=== PATIENT | male | born 1975 | race Caucasian/White ===

== ENCOUNTER 2017-02-08 22:55 | Emergency (ER) | payer SELFPAY ==
[~2017-02-08] VITALS: Ht 167.6 cm; Wt 69.0 kg
[~2017-02-08 22:55] MED LIST: ACET325T33 PO; AUG875 PO; CIPR7.5D4 RIGHT EAR
[2017-02-08 23:00] VITALS: Ht 167.6 cm; Wt 69.0 kg
[2017-02-09] MEDS ORDERED: MAGIC MOUTHWASH (00:34)
--- NOTE | 2017-02-27 18:19 | ERD ---
ER Documentation Chief Complaint Date/Time DATE: 02/27/17 TIME: 18:16 Chief Complaint mouth sores HPI 41 yo male presents here in the ER for complaints mouth sores started yesterday. Patient denies any fever or chills. Patient denies any sick contacts. Patient denies any shortness of breath, stridor, wheezing. Patient denies any other symptoms. Patient did not take any medications to help with symptoms. ROS All systems reviewed and are negative except as per history of present illness. Medications Home Meds Active Scripts [Magic Mouthwash] No Conflict Check Rx: 1 Part viscous lidocaine 2% 1 Part Maalox (do not substitute Kaopectate) 1 Part diphenhydramine 12.5 mg per 5 ml elixir Quantity: 120 ml Sig: Swish, gargle, and spit one to two teaspoonfuls every six hours as needed. May be swallowed if esophageal involvement. Shake well before using. Prov:ISRAEL GONSALES NP 02/09/17 Acetaminophen* (Tylenol*) 325 Mg Tablet, 1 TAB PO Q6 Y for PAIN AND OR ELEVATED TEMP, #20 TAB Prov:FAWAD CHARLES DO 06/27/15 Acetaminophen* (Tylenol*) 325 Mg Tablet, 2 TAB PO Q6 Y for PAIN AND OR ELEVATED TEMP, #30 TAB Prov:ANA HOWE PA-C 06/24/15 Ciprofloxacin Hcl/Dexameth (Ciprodex Otic Suspension) 7.5 Ml Drops.susp, 4 DROP RIGHT EAR BID for 7 Days, EA Prov:ANA HOWE PA-C 06/24/15 Amoxicillin-Clavulanate K* (Augmentin*) 875 Mg Tab, 875 MG PO BID for 7 Days, TAB Prov:ANA HOWE PA-C 06/24/15 Allergies Allergies: Coded Allergies: No Known Allergy (Unverified , 06/27/15) PMhx/Soc History of Surgery: Yes (APPENDECTOMY; HERNIA. ) Anesthesia Reaction: No Hx Neurological Disorder: No Hx Respiratory Disorders: No Hx Cardiac Disorders: No Hx Psychiatric Problems: No Hx Miscellaneous Medical Probl: No Hx Alcohol Use: No Hx Substance Use: No Hx Tobacco Use: No FmHx Family History: No coronary disease, No diabetes, No other Physical Exam Physical Exam GENERAL: The patient is well developed and appropriate for usual state of health, in no apparent distress. HEENT: Atraumatic. Ears: Normal tympanic membrane, no erythema or bulging. No ear canal swelling. No ear discharge. Nose: normal nasal turbinates, no erythema or swelling. Normal nasal discharge. Throat: oropharynx clear. No tonsillar swelling or tonsillar exudates. No lymphadenopathy. Also sick with the buccal mucosa, tongue, Oropharyngeal Wall. CHEST: Clear to auscultation bilaterally. There are no rales, wheezes or rhonchi. HEART: Regular rate and rhythm. No murmurs, clicks, rubs or gallops. No S3 or S4. ABDOMEN: Soft, nontender and nondistended. Good bowel sounds. No rebound or guarding. No gross peritonitis. No gross organomegaly or masses. No Rock sign or McBurney point tenderness. BACK: No midline or flank tenderness. EXTREMITIES: Equal pulses bilaterally. There is no peripheral clubbing, cyanosis or edema. No focal swelling or erythema. Full range of motion. Grossly neurovascularly intact. NEURO: Alert and oriented. Cranial nerves 2-12 intact. Motor strength in all 4 extremities with 5/5 strength. Sensation grossly intact. Normal speech and gait. SKIN: There is no apparent rash or petechia. The skin is warm and dry. HEMATOLOGIC AND LYMPHATIC: There is no evidence of excessive bruising or lymphedema. No gross cervical, axillary, or inguinal lymphadenopathy. Procedures/MDM Medical decision making: Patient's symptoms most active consistent with aphthous ulcer, nonspecific at this time, I doubt the patient has peritonsillar abscess, acute bacterial infection, leukoplakia, patient does not have any symptoms of shortness of breath. Patient was advised to take medications as prescribed, was given prescription for Magic mouthwash, is advised to follow-up with primary care doctor in 1-2 days for reevaluation symptoms. Patient was advised to return to emergency department for worsening symptoms Departure Diagnosis: Primary Impression: Aphthous ulcer Condition: Stable Patient Instructions: Aphthous Ulcer ISRAEL GONSALES NP Feb 27, 2017 18:19
== END 2017-02-09 01:04 | disposition home or self-care (01) ==
LOC: FTE 22:55
DX: K12.0 Recurrent oral aphthae (principal)
CPT/HCPCS: 99283

== ENCOUNTER 2019-03-30 13:12 | Inpatient (IN) | payer MEDICAID ==
[~2019-03-30] VITALS: Ht 167.6 cm; Wt 69.4 kg
[~2019-03-30 13:12] MED LIST changes: +CIPR7.5D RIGHT EAR; -CIPR7.5D4 RIGHT EAR; +MAGIC MOUTHWASH
--- NOTE | 2019-03-30 13:22 | EN ---
Date/Time of Note Date/Time of Note DATE: 03/30/19 TIME: 13:21 ER Progress Note Quick RME note: Medical screening exam was initiated and lab/imaging studies were ordered. Patient will be seen in ED 2 by another provider. HPI: Patient is a 43-year-old male presents ER for concerns of hematuria x1 day. Patient states he had intermittent right upper quadrant pain, nausea and vomiting. At this time he has no right upper quadrant pain. Patient did go to his primary care doctor who did obtain blood work however he does not have the results. Orders placed: UA ordered. Additional orders will be placed by ED 2 provider JOSEPH RAMOS PA-C March 30, 2019 13:22
--- NOTE | 2019-03-30 14:26 | ERD ---
ER Documentation Chief Complaint Chief Complaint c/o hematuria since yesterday, denies flank pain HPI Patient is a 43-year-old male presents ER for concerns of hematuria x1 day. Patient states he had intermittent right upper quadrant pain, nausea and vomiting for the past 1-1/2 months.. At this time he has no right upper quadrant pain. Patient did go to his primary care doctor who did obtain blood work however he does not have the results. Denies dysuria, fevers, chills, flank pain. He denies drinking alcohol.No blood thinner use or history of coagulopathy ROS All systems reviewed and are negative except as per history of present illness. Medications Home Meds Active Scripts Levothyroxine Sodium* (Levothyroxine Sodium*) 50 Mcg Tablet, 50 MCG PO DAILY@06, #30 TAB Prov:MARIANA MENDOZA NP 04/01/19 Tramadol HCl (Tramadol HCl) 50 Mg Tablet, 50 MG PO Q6H PRN for PAIN, #12 TAB Prov:MARIANA MENDOZA NP 04/01/19 Famotidine* (Famotidine*) 20 Mg Tablet, 20 MG PO DAILY, #30 TAB Prov:MARIANA MENDOZA NP 04/01/19 Discontinued Scripts [Magic Mouthwash] No Conflict Check Rx: 1 Part viscous lidocaine 2% 1 Part Maalox (do not substitute Kaopectate) 1 Part diphenhydramine 12.5 mg per 5 ml elixir Quantity: 120 ml Sig: Swish, gargle, and spit one to two teaspoonfuls every six hours as needed. May be swallowed if esophageal involvement. Shake well before using. Prov:ISRAEL GONSALES NP 02/09/17 Acetaminophen* (Tylenol*) 325 Mg Tablet, 1 TAB PO Q6 PRN for PAIN AND OR ELEVATED TEMP, #20 TAB Prov:FAWAD CHARLES DO 06/27/15 Acetaminophen* (Tylenol*) 325 Mg Tablet, 2 TAB PO Q6 PRN for PAIN AND OR ELEVATED TEMP, #30 TAB Prov:ANA HOWEC 06/24/15 Ciprofloxacin Hcl/Dexameth (Ciprodex Otic Suspension) 7.5 Ml Drops.susp, 4 DROP RIGHT EAR BID for 7 Days, EA Prov:ANA HOWE PA-C 06/24/15 Amoxicillin-Clavulanate K* (Augmentin*) 875 Mg Tab, 875 MG PO BID for 7 Days, TAB Prov:ANA HOWE PA-C 06/24/15 Allergies Allergies: Coded Allergies: No Known Allergy (Unverified , 03/30/19) PMhx/Soc History of Surgery: Yes (APPENDECTOMY; HERNIA. ) Anesthesia Reaction: No Hx Neurological Disorder: No Hx Respiratory Disorders: No Hx Cardiac Disorders: No Hx Psychiatric Problems: No Hx Miscellaneous Medical Probl: No Hx Alcohol Use: No Hx Substance Use: No Hx Tobacco Use: No Smoking Status: Never smoker FmHx Family History: No diabetes, No coronary disease, No other Physical Exam Vitals Vital Signs Date Temp Pulse Resp B/P (MAP) Pulse Ox O2 O2 Flow FiO2 Time Delivery Rate 03/30/19 98.4 55 16 109/67 98 18:20 (81) 03/30/19 98.1 84 20 139/88 96 13:16 (105) Physical Exam Const: No acute distress Head: Atraumatic Eyes: Jaundice noted on the conjunctival bilaterally. ENT: Normal External Ears, Nose and Mouth. Neck: Full range of motion. No meningismus. Resp: Clear to auscultation bilaterally Cardio: Regular rate and rhythm, no murmurs Abd: Soft, non tender, non distended. Normal bowel sounds. Negative Rock's. Negative McBurney's. Skin: No petechiae or rashes Back: No midline or flank tenderness Ext: No cyanosis, or edema Neur: Awake and alert Psych: Normal Mood and Affect : No penile discharge noted. Glans of penis is not erythematous or edematous. Attending exam: Const: Well-appearing, no apparent distress, nontoxic Head: Atraumatic Eyes: Scleral icterus noted, PERRLA ENT: Normal External Ears, Nose and Mouth. Neck: Full range of motion. No meningismus. Resp: Clear to auscultation bilaterally Cardio: Regular rate and rhythm, no murmurs Abd: Soft, non tender, non distended. No palpable masses. Negative Rock sign. No hepatosplenomegaly. Normal bowel sounds Skin: No petechiae or rashes, no obvious jaundice. No bruises Back: No midline or flank tenderness Ext: No cyanosis, or edema Neur: Awake and alert Psych: Normal Mood and Affect Result Diagram: 03/31/19 0429 04/01/19 0458 Results 24 hrs Laboratory Tests Test 03/30/19 14:54 03/30/19 17:45 White Blood Count 5.2 10^3/ul Red Blood Count 5.21 10^6/ul Hemoglobin 14.6 g/dl Hematocrit 44.3 % Mean Corpuscular Volume 85.0 fl Mean Corpuscular Hemoglobin 28.0 pg Mean Corpuscular Hemoglobin Concent 33.0 g/dl Red Cell Distribution Width 13.8 % Platelet Count 296 10^3/UL Mean Platelet Volume 9.4 fl Immature Granulocytes % 0.400 % Neutrophils % 54.3 % Lymphocytes % 34.9 % Monocytes % 7.3 % Eosinophils % 2.7 % Basophils % 0.4 % Nucleated Red Blood Cells % 0.0 /100WBC Immature Granulocytes # 0.020 10^3/ul Neutrophils # 2.8 10^3/ul Lymphocytes # 1.8 10^3/ul Monocytes # 0.4 10^3/ul Eosinophils # 0.1 10^3/ul Basophils # 0.0 10^3/ul Nucleated Red Blood Cells # 0.0 10^3/ul Urine Color ZENON Urine Clarity CLEAR Urine pH 6.0 Urine Specific [place] 1.015 Urine Ketones 1+ mg/dL Urine Nitrite NEGATIVE mg/dL Urine Bilirubin 2+ mg/dL Urine Urobilinogen 2+ mg/dL Urine Leukocyte Esterase NEGATIVE Natalia/ul Urine Hemoglobin NEGATIVE mg/dL Urine Glucose NEGATIVE mg/dL Urine Total Protein NEGATIVE mg/dl Sodium Level 141 mmol/L Potassium Level 4.2 mmol/L Chloride Level 100 mmol/L Carbon Dioxide Level 32 mmol/L Anion Gap 9 Blood Urea Nitrogen 14 mg/dl Creatinine 0.81 mg/dl Est Glomerular Filtrat Rate mL/min > 60 mL/min Glucose Level 115 mg/dl Calcium Level 9.8 mg/dl Total Bilirubin 2.8 mg/dl Direct Bilirubin 1.30 mg/dl Indirect Bilirubin 1.5 mg/dl Aspartate Amino Transf (AST/SGOT) 441 IU/L Alanine Aminotransferase (ALT/SGPT) 950 IU/L Alkaline Phosphatase 255 IU/L Total Protein 7.8 g/dl Albumin 4.6 g/dl Globulin 3.20 g/dl Albumin/Globulin Ratio 1.43 Lipase 109 U/L Hepatitis B Surface Antigen NEGATIVE Hepatitis B Core Total Antibody NEGATIVE Hepatitis C Antibody NEGATIVE Prothrombin Time 12.4 Sec Prothrombin Time Ratio 1.0 INR International Normalized Ratio 0.91 Activated Partial Thromboplast Time 28.6 Sec Current Medications Medications Dose Sig/Adam Start Time Status Last (Trade) Ordered Route PRN Stop Time Admin Dose Reason Admin IV Flush 10 ml STK-MED 03/30/19 DC (NS 10 ml) ONCE .ROUTE 17:50 03/30/19 17:51 Sodium 100 ml @ ud STK-MED 03/30/19 DC Chloride ONCE .ROUTE 17:50 03/30/19 17:51 Iohexol 50 ml STK-MED 03/30/19 DC (Omnipaque ONCE .ROUTE 17:50 350mg/ ml) 03/30/19 17:51 Sodium 1,000 ml @ [id number] IV 03/30/19 DC 03/31/19 Chloride 80 mls/hr 18:37 21:49 04/01/19 18:03 Procedures/MDM EMERGENT LABS AND DIAGNOSTIC STUDIES: Lab Results above were reviewed and interpreted by me. CBC: no anemia or evidence of infection CMP: Significant transaminitis with elevated bilirubin and alk phos, concerning for biliary obstruction. No evidence of clinically significant electrolyte abnormality, acidosis, renal failure, hypoglycemia Lipase: no evidence of pancreatitis UA: no evidence of hematuria or infection. Bilirubin noted Radiology Results as interpreted by Radiology below were reviewed by Danilo Howard MD: Ultrasound right upper quadrant shows large gallstone CT abdomen and pelvis with and without IV contrast shows gallstones without other abnormalities Initial Nursing notes reviewed. Previous Medical Records requested via the Electronic Health Record. EMERGENCY DEPARTMENT COURSE / MEDICAL DECISION MAKING: Patient is presenting with new onset jaundice and intermittent right upper michelle drant pain and vomiting. Exam and work-up are concerning for possible biliary obstruction, either from stone versus scar tissue versus mass. Currently the patient has no symptoms or signs of cholecystitis. I do not suspect acute cholangitis. Hepatitis work-up ordered. Patient will require admission for GI consultation and likely ERCP. Accepting Care Team: Current data and ongoing care discussed. Time: Time of admission Primary Provider: Dr. Wilson Outstanding Data: hepatitis panel Departure Diagnosis: Primary Impression: Biliary obstruction Additional Impression: Cholelithiasis Cholelithiasis location: other site Biliary obstruction: with biliary obstruction Qualified Codes: K80.81 - Other cholelithiasis with obstruction Condition: Stable KATHRYN CEJA March 30, 2019 14:26 ROBERTH HOWARD MD March 30, 2019 19:46
[2019-03-30] MEDS ORDERED: LEVO25TA6 PO (17:20)
[2019-03-30] MEDS ORDERED: SOD CHLORIDE 0.9% 100 ML ONE (17:50)
[2019-03-30] MEDS ORDERED: IOHEXOL 350MG/ML 50 ML BTL ONE (17:50)
[2019-03-30] MEDS ORDERED: NACL 0.9% 3 ML SYG IV SCH (19:00)
[2019-03-30] MEDS ORDERED: ACETAMINOPHEN 325 MG TAB PO PRN ×2 (19:00)
[2019-03-30] MEDS ORDERED: ONDANSETRON 4 MG INJ IV PRN ×2 (19:00)
[2019-03-30] MEDS ORDERED: morphine 2 MG INJ IV PRN (19:00)
[2019-03-30] MEDS ORDERED: HYDROCODONE/APAP (5/325) TAB PO PRN (19:00)
[2019-03-30] MEDS: SOD CHLORIDE 0.9% 1,000 ML IV SCH (20:59)
[2019-03-31 00:46] VITALS: Ht 167.6 cm; Wt 69.4 kg
[2019-03-31 00:59] VITALS: BP 131/75; PULSE 61; RESP 18
[2019-03-31] MEDS ORDERED: METOCLOPRAMIDE 10 MG INJ IV PRN (01:00)
[2019-03-31] MEDS ORDERED: PANTOPRAZOLE 40 MG INJ IV SCH (06:00)
[2019-03-31] MEDS: LEVOTHYROXINE 25 MCG TAB PO SCH (06:26)
--- NOTE | 2019-03-31 07:05 | HP ---
Date/Time of Note Date/Time of Note DATE: 03/31/19 TIME: 07:01 Assessment/Plan VTE Prophylaxis Pharmacological prophylaxis: other Lines/Catheters IV Catheter Type (from Nrs): Saline Lock Assessment/Plan Assessment/Plan 43-year-old male with a history of hernia surgery and appendectomy presents with right upper quadrant pain of > 1 month duration and jaundice, most likely secondary to choledocholithiasis PLAN -Keep n.p.o. with IV fluid -MRCP -GI consult -Check hep panel Result Diagram: 03/31/19 0429 03/31/19428 Results 24hrs Laboratory Tests Test 03/30/19 14:54 03/30/19 17:45 03/31/19 04:29 White Blood Count 5.2 6.1 Red Blood Count 5.21 4.78 Hemoglobin 14.6 13.5 L Hematocrit 44.3 40.3 L Mean Corpuscular Volume 85.0 84.3 Mean Corpuscular Hemoglobin 28.0 L 28.2 L Mean Corpuscular Hemoglobin Concent 33.0 33.5 Red Cell Distribution Width 13.8 14.2 Platelet Count 296 273 Mean Platelet Volume 9.4 9.8 Immature Granulocytes % 0.400 0.300 Neutrophils % 54.3 60.3 Lymphocytes % 34.9 27.8 Monocytes % 7.3 8.2 Eosinophils % 2.7 3.1 Basophils % 0.4 0.3 Nucleated Red Blood Cells % 0.0 0.0 Immature Granulocytes # 0.020 0.020 Neutrophils # 2.8 3.7 Lymphocytes # 1.8 1.7 Monocytes # 0.4 0.5 Eosinophils # 0.1 0.2 Basophils # 0.0 0.0 Nucleated Red Blood Cells # 0.0 0.0 Urine Color ZENON Urine Clarity CLEAR Urine pH 6.0 Urine Specific [place] 1.015 Urine Ketones 1+ H Urine Nitrite NEGATIVE Urine Bilirubin 2+ H Urine Urobilinogen 2+ H Urine Leukocyte Esterase NEGATIVE Urine Hemoglobin NEGATIVE Urine Glucose NEGATIVE Urine Total Protein NEGATIVE Sodium Level 141 143 Potassium Level 4.2 4.4 Chloride Level 100 103 Carbon Dioxide Level 32 H 30 Anion Gap 9 10 Blood Urea Nitrogen 14 14 Creatinine 0.81 0.87 Est Glomerular Filtrat Rate mL/min > 60 > 60 Glucose Level 115 81 Calcium Level 9.8 9.1 Total Bilirubin 2.8 H 1.1 Direct Bilirubin 1.30 H 0.00 # Indirect Bilirubin 1.5 H 1.1 Aspartate Amino Transf (AST/SGOT) 441 H 227 H Alanine Aminotransferase (ALT/SGPT) 950 H 699 H Alkaline Phosphatase 255 H 223 H Total Protein 7.8 6.7 # Albumin 4.6 4.0 Globulin 3.20 2.70 Albumin/Globulin Ratio 1.43 1.48 Lipase 109 Hepatitis B Surface Antigen NEGATIVE Hepatitis B Core Total Antibody NEGATIVE Hepatitis C Antibody NEGATIVE Prothrombin Time 12.4 Prothrombin Time Ratio 1.0 INR International Normalized Ratio 0.91 Activated Partial Thromboplast Time 28.6 Hemoglobin A1c 5.1 Magnesium Level 2.1 Triglycerides Level 32 Cholesterol Level 142 LDL Cholesterol, Calculated 71 HDL Cholesterol 65 Cholesterol/HDL Ratio 2.1 Thyroid Stimulating Hormone (TSH) 58.600 H HPI/ROS Admit Date/Time Admit Date/Time March 30, 2019 at 18:37 Hx of Present Illness This is a 43-year-old male with a history of hernia surgery and appendectomy who presents the ER complaining of abdominal pain. Pain is been going on for over a month and is mainly located in the right upper quadrant area. He also complains of yellowing of his eyes. He said does not drink, smoke or do illicit drugs When he presented to ER, he is found to have AST and ALT in the 400s and 900s range respectively. Total bilirubin 2.8, direct 1.3, alk phos 255. Ultrasound shows ill-defined echogenic area in the right and left lobes of the liver may represent a large area of calcification versus air and large calcified stone within the gallbladder. CT abdomen/pelvis shows fatty liver, cholelithiasis and a small hiatal hernia PMH/Family/Social Past Medical History Past Medical History Medical History: other (See HPI) Past Surgical History Past Surgical Hx: other (See HPI) Family History Significant Family History: no pertinent family hx Social History Alcohol Use: none Smoking Status: Never smoker Drug Use: none Exam Constitutional: alert, oriented, well developed Head: normocephalic, atraumatic Eyes: EOMI, PERRL Respiratory: clear to auscultation, normal air movement Cardiovascular: regular rate and rhythm, nl pulses Gastrointestinal: soft, non-tender Extremities: normal pulses Medications Current Medications Ondansetron HCl (Zofran Inj) 4 mg BRIDGE ORDER PRN IV NAUSEA/VOMITING; Start 03/30/19 at 19:00; Stop 03/31/19 at 18:59 Acetaminophen (Tylenol Tab) 650 mg ER BRIDGE PRN PO .MILD PAIN 1-3 OR TEMP; Start 03/30/19 at 19:00; Stop 03/31/19 at 18:59 Sodium Chloride 1,000 ml @ 80 mls/hr [id number] IV Last administered on 03/30/19at 20:59; Admin Dose 80 MLS/HR; Start 03/30/19 at 18:37 IV Flush (NS 3 ml) 3 ml PER PROTOCOL IV ; Start 03/30/19 at 19:00 Ondansetron HCl (Zofran Inj) 4 mg Q6H PRN IV NAUSEA/VOMITING Last administered on 03/30/19at 21:00; Admin Dose 4 MG; Start 03/30/19 at 19:00 Acetaminophen (Tylenol Tab) 650 mg Q6H PRN PO .PAIN 1-3 OR TEMP; Start 03/30/19 at 19:00 Acetaminophen/ Hydrocodone Bitart ([place] (5/325)) 1 tab Q6H PRN PO .PAIN 4-6; Start 03/30/19 at 19:00 Morphine Sulfate (morphine) 2 mg Q4H PRN IV .PAIN 7-10; Start 03/30/19 at 19:00 Pantoprazole (Protonix Iv) 40 mg DAILY@06 IV Last administered on 03/31/19at 06:28; Admin Dose 40 MG; Start 03/31/19 at 06:00 Metoclopramide HCl (Reglan) 10 mg Q6H PRN IV NAUSEA Last administered on 9at 01:09; Admin Dose 10 MG; Start 03/31/19 at 01:00; Stop 04/01/19 at 01:00 Levothyroxine Sodium (Synthroid) 25 mcg BEFORE BREAKFAST PO ; Start 03/31/19 at 07:00 Coded Allergies: No Known Allergy (Unverified , 03/30/19) Social History Smoking Status: Unknown if ever smoked Exam/Review of Systems Vital Signs Vitals Vital Signs Date Temp Pulse Resp B/P (MAP) Pulse Ox O2 O2 Flow FiO2 Time Delivery Rate 03/31/19 97.8 61 18 131/75 95 00:59 (93) 03/31/19 Room Air 00:25 KATHRYN NEELY MD March 31, 2019 07:05
[2019-03-31] MEDS: SOD CHLORIDE 0.9% 1,000 ML IV SCH ×3 (07:07→21:49)
[2019-03-31 08:00] VITALS: BP 100/57; PULSE 54; RESP 18
--- NOTE | 2019-03-31 11:00 | CONS ---
Assessment/Plan Assessment/Plan Hospital Course (Demo Recall) Summary Assessment and Plan: Assessment: Transaminitis- Trending down Hyperbilirubinemia- resolved -Rule out choledocholithiasis -Possible stone passage? Upper abdominal pain-improved Cholelithiasis Mild fatty infiltration of the liver. Hypothyroidism Plan: MRCP if positive for choledocholithiasis will proceed with ERCP Trend LFTs Ok to start clear liquid diet after MRCP - if negative Patient seen in collaboration with Dr. Badillo CC: OMAR BADILLO MD ; Consultation Date/Type/Reason Admit Date/Time March 30, 2019 at 18:37 Date of Consultation: March 31, 2019 Type of Consult GI Reason for Consultation Transaminitis with hyperbilirubinemia Choledocholithiasis Date/Time of Note DATE: 03/31/19 TIME: 10:53 Hx of Present Illness This is a 43-year-old male with no significant past medical history presented to the hospital complains of upper abdominal pain with work-up patient found to have hyperbilirubinemia transaminitis imaging was obtained including CT abdomen pelvis without contrast showing cholelithiasis, mild fatty infiltration of the liver no dilation of the biliary tree was noted. Patient was admitted for [facility] work-up currently MRCP is been ordered and is pending hepatitis serology is negative for hepatitis B/C LFTs today have decreased in hyper bilirubin has resolved. Will await results of MRCP if deemed positive for choledocholithiasis we will proceed with ERCP. Review of Systems: A 12 system, review was conducted and is negative except as noted in the HPI or here. Past Medical History Home Meds Reported Medications Levothyroxine Sodium* (Levothyroxine Sodium*) 25 Mcg Tablet, 25 MCG PO BEFORE BREAKFAST, #30 TAB 03/30/19 Discontinued Scripts [Magic Mouthwash] No Conflict Check Rx: 1 Part viscous lidocaine 2% 1 Part Maalox (do not substitute Kaopectate) 1 Part diphenhydramine 12.5 mg per 5 ml elixir Quantity: 120 ml Sig: Swish, gargle, and spit one to two teaspoonfuls every six hours as needed. May be swallowed if esophageal involvement. Shake well before using. Prov:ISRAEL GONSALES NP 02/09/17 Acetaminophen* (Tylenol*) 325 Mg Tablet, 1 TAB PO Q6 PRN for PAIN AND OR ELEVATED TEMP, #20 TAB Prov:FAWAD CHARLES 06/27/15 Acetaminophen* (Tylenol*) 325 Mg Tablet, 2 TAB PO Q6 PRN for PAIN AND OR ELEVATED TEMP, #30 TAB Prov:ANA HOWE PA-C 06/24/15 Ciprofloxacin Hcl/Dexameth (Ciprodex Otic Suspension) 7.5 Ml Drops.susp, 4 DROP RIGHT EAR BID for 7 Days, EA Prov:ANA HOWE PA-C 06/24/15 Amoxicillin-Clavulanate K* (Augmentin*) 875 Mg Tab, 875 MG PO BID for 7 Days, TAB Prov:ANA HOWE PA-C 06/24/15 Medications Current Medications Ondansetron HCl (Zofran Inj) 4 mg BRIDGE ORDER PRN IV NAUSEA/VOMITING; Start 03/30/19 at 19:00; Stop 03/31/19 at 18:59 Acetaminophen (Tylenol Tab) 650 mg ER BRIDGE PRN PO .MILD PAIN 1-3 OR TEMP; Start 03/30/19 at 19:00; Stop 03/31/19 at 18:59 Sodium Chloride 1,000 ml @ 80 mls/hr [id number] IV Last administered on 03/31/19at 08:50; Admin Dose 80 MLS/HR; Start 03/30/19 at 18:37 IV Flush (NS 3 ml) 3 ml PER PROTOCOL IV ; Start 03/30/19 at 19:00 Ondansetron HCl (Zofran Inj) 4 mg Q6H PRN IV NAUSEA/VOMITING Last administered on 03/30/19at 21:00; Admin Dose 4 MG; Start 03/30/19 at 19:00 Acetaminophen (Tylenol Tab) 650 mg Q6H PRN PO .PAIN 1-3 OR TEMP; Start 03/30/19 at 19:00 Acetaminophen/ Hydrocodone Bitart ([place] (5/325)) 1 tab Q6H PRN PO .PAIN 4-6; Start 03/30/19 at 19:00 Morphine Sulfate (morphine) 2 mg Q4H PRN IV .PAIN 7-10; Start 03/30/19 at 19:00 Pantoprazole (Protonix Iv) 40 mg DAILY@06 IV Last administered on 03/31/19at 06:28; Admin Dose 40 MG; Start 03/31/19 at 06:00 Metoclopramide HCl (Reglan) 10 mg Q6H PRN IV NAUSEA Last administered on 03/31/19at 01:09; Admin Dose 10 MG; Start 03/31/19 at 01:00; Stop 04/01/19 at 01:00 Levothyroxine Sodium (Synthroid) 25 mcg BEFORE BREAKFAST PO ; Start 03/31/19 at 07:00 Allergies: Coded Allergies: No Known Allergy (Unverified , 03/30/19) Social History Smoking Status: Unknown if ever smoked Exam/Review of Systems Exam Vitals Vital Signs Date Temp Pulse Resp B/P (MAP) Pulse Ox O2 O2 Flow FiO2 Time Delivery Rate 03/31/19 97.5 54 18 100/57 96 Room Air 08:00 (71) Intake and Output 03/30/19 03/30/19 03/31/19 1515:00 23:00 07:00 IntakeIntake Total 800 ml BalanceBalance 800 ml Exam PHYSICAL EXAMINATION: GENERAL: Well developed, well nourished, alert & oriented x 3, in no acute distress SKIN: No lesions HEAD: Normocephalic, atraumatic, no tenderness. EYES: Pupils equal reactive to light and accommodation, no discharge. EARS/NOSE AND THROAT: Ears normal, nose normal, . NECK: Supple, no masses. CHEST: Inspection within normal limits. CARDIOVASCULAR: Heart: Regular rate and rhythm RESPIRATORY: Lungs clear to auscultation GASTROINTESTINAL AND LIVER: Abdomen: Soft, non tenderness, no guarding, normoactive bowel sounds. Rectal: Deferred. EXTREMITIES: No cyanosis, clubbing or edema. Results Result Diagram: 03/31/19 0429 03/31/19 0429 Results 24hrs Laboratory Tests Test 03/30/19 14:54 03/30/19 17:45 03/31/19 04:29 White Blood Count 5.2 6.1 Red Blood Count 5.21 4.78 Hemoglobin 14.6 13.5 L Hematocrit 44.3 40.3 L Mean Corpuscular Volume 85.0 84.3 Mean Corpuscular Hemoglobin 28.0 L 28.2 L Mean Corpuscular Hemoglobin Concent 33.0 33.5 Red Cell Distribution Width 13.8 14.2 Platelet Count 296 273 Mean Platelet Volume 9.4 9.8 Immature Granulocytes % 0.400 0.300 Neutrophils % 54.3 60.3 Lymphocytes % 34.9 27.8 Monocytes % 7.3 8.2 Eosinophils % 2.7 3.1 Basophils % 0.4 0.3 Nucleated Red Blood Cells % 0.0 0.0 Immature Granulocytes # 0.020 0.020 Neutrophils # 2.8 3.7 Lymphocytes # 1.8 1.7 Monocytes # 0.4 0.5 Eosinophils # 0.1 0.2 Basophils # 0.0 0.0 Nucleated Red Blood Cells # 0.0 0.0 Urine Color ZENON Urine Clarity CLEAR Urine pH 6.0 Urine Specific [place] 1.015 Urine Ketones 1+ H Urine Nitrite NEGATIVE Urine Bilirubin 2+ H Urine Urobilinogen 2+ H Urine Leukocyte Esterase NEGATIVE Urine Hemoglobin NEGATIVE Urine Glucose NEGATIVE Urine Total Protein NEGATIVE Sodium Level 141 143 Potassium Level 4.2 4.4 Chloride Level 100 103 Carbon Dioxide Level 32 H 30 Anion Gap 9 10 Blood Urea Nitrogen 14 14 Creatinine 0.81 0.87 Est Glomerular Filtrat Rate mL/min > 60 > 60 Glucose Level 115 81 Calcium Level 9.8 9.1 Total Bilirubin 2.8 H 1.1 Direct Bilirubin 1.30 H 0.00 # Indirect Bilirubin 1.5 H 1.1 Aspartate Amino Transf (AST/SGOT) 441 H 227 H Alanine Aminotransferase (ALT/SGPT) 950 H 699 H Alkaline Phosphatase 255 H 223 H Total Protein 7.8 6.7 # Albumin 4.6 4.0 Globulin 3.20 2.70 Albumin/Globulin Ratio 1.43 1.48 Lipase 109 Hepatitis B Surface Antigen NEGATIVE Hepatitis B Core Total Antibody NEGATIVE Hepatitis C Antibody NEGATIVE Prothrombin Time 12.4 Prothrombin Time Ratio 1.0 INR International Normalized Ratio 0.91 Activated Partial Thromboplast Time 28.6 Hemoglobin A1c 5.1 Magnesium Level 2.1 Triglycerides Level 32 Cholesterol Level 142 LDL Cholesterol, Calculated 71 HDL Cholesterol 65 Cholesterol/HDL Ratio 2.1 Thyroid Stimulating Hormone (TSH) 58.600 H Medications Medication Current Medications Ondansetron HCl (Zofran Inj) 4 mg BRIDGE ORDER PRN IV NAUSEA/VOMITING; Start 03/30/19 at 19:00; Stop 03/31/19 at 18:59 Acetaminophen (Tylenol Tab) 650 mg ER BRIDGE PRN PO .MILD PAIN 1-3 OR TEMP; Start 03/30/19 at 19:00; Stop 03/31/19 at 18:59 Sodium Chloride 1,000 ml @ 80 mls/hr [id number] IV Last administered on 03/31/19 08:50; Admin Dose 80 MLS/HR; Start 03/30/19 at 18:37 IV Flush (NS 3 ml) 3 ml PER PROTOCOL IV ; Start 03/30/19 at 19:00 Ondansetron HCl (Zofran Inj) 4 mg Q6H PRN IV NAUSEA/VOMITING Last administered on 03/30/19at 21:00; Admin Dose 4 MG; Start 03/30/19 at 19:00 Acetaminophen (Tylenol Tab) 650 mg Q6H PRN PO .PAIN 1-3 OR TEMP; Start 03/30/19 at 19:00 Acetaminophen/ Hydrocodone Bitart ([place] (5/325)) 1 tab Q6H PRN PO .PAIN 4-6; Start 03/30/19 at 19:00 Morphine Sulfate (morphine) 2 mg Q4H PRN IV .PAIN 7-10; Start 03/30/19 at 19:00 Pantoprazole (Protonix Iv) 40 mg DAILY@06 IV Last administered on 03/31/19at 06:28; Admin Dose 40 MG; Start 03/31/19 at 06:00 Metoclopramide HCl (Reglan) 10 mg Q6H PRN IV NAUSEA Last administered on 03/31/19at 01:09; Admin Dose 10 MG; Start 03/31/19 at 01:00; Stop 04/01/19 at 01:00 Levothyroxine Sodium (Synthroid) 25 mcg BEFORE BREAKFAST PO ; Start 03/31/19 at 07:00 SP VELÁZQUEZ March 31, 2019 11:00
--- NOTE | 2019-03-31 17:47 | PN ---
Date/Time of Note Date/Time of Note DATE: 03/31/19 TIME: 17:44 Assessment/Plan VTE Prophylaxis Risk score (from Nsg)>0 risk: 1 Pharmacological prophylaxis: NA/contraindicated Pharm contraindication: low risk/ambulating Lines/Catheters IV Catheter Type (from Nrsg): Saline Lock Assessment/Plan Hospital Course 1. Painless jaundice with transaminitis Hepatitis viral panel is negative MRCP is negative for choledocholithiasis GI consultation appreciated LFTs are trending down including bilirubin, continue to monitor Follow-up on TOMASA, smooth muscle antibody and mitochondrial antibody 2. History of hernia repair and appendectomy No acute issues Prophylaxis: Ambulation Result Diagram: 03/31/1942803/31/19428 Results 24hrs Laboratory Tests Test 03/30/19 17:45 03/31/19 04:29 03/31/19 12:50 Prothrombin Time 12.4 Prothrombin Time Ratio 1.0 INR International Normalized Ratio 0.91 Activated Partial Thromboplast Time 28.6 White Blood Count 6.1 Red Blood Count 4.78 Hemoglobin 13.5 L Hematocrit 40.3 L Mean Corpuscular Volume 84.3 Mean Corpuscular Hemoglobin 28.2 L Mean Corpuscular Hemoglobin Concent 33.5 Red Cell Distribution Width 14.2 Platelet Count 273 Mean Platelet Volume 9.8 Immature Granulocytes % 0.300 Neutrophils % 60.3 Lymphocytes % 27.8 Monocytes % 8.2 Eosinophils % 3.1 Basophils % 0.3 Nucleated Red Blood Cells % 0.0 Immature Granulocytes # 0.020 Neutrophils # 3.7 Lymphocytes # 1.7 Monocytes # 0.5 Eosinophils # 0.2 Basophils # 0.0 Nucleated Red Blood Cells # 0.0 Sodium Level 143 Potassium Level 4.4 Chloride Level 103 Carbon Dioxide Level 30 Anion Gap 10 Blood Urea Nitrogen 14 Creatinine 0.87 Est Glomerular Filtrat Rate mL/min > 60 Glucose Level 81 Hemoglobin A1c 5.1 Calcium Level 9.1 Magnesium Level 2.1 Total Bilirubin 1.1 Direct Bilirubin 0.00 # Indirect Bilirubin 1.1 Aspartate Amino Transf (AST/SGOT) 227 H Alanine Aminotransferase (ALT/SGPT) 699 H Alkaline Phosphatase 223 H Total Protein 6.7 # Albumin 4.0 Globulin 2.70 Albumin/Globulin Ratio 1.48 Triglycerides Level 32 Cholesterol Level 142 LDL Cholesterol, Calculated 71 HDL Cholesterol 65 Cholesterol/HDL Ratio 2.1 Thyroid Stimulating Hormone (TSH) 58.600 H HIV (1&2) Antibody NEGATIVE Subjective 24 Hr Interval Summary Constitutional: no complaints Exam/Review of Systems Exam Vitals Vital Signs Date Temp Pulse Resp B/P (MAP) Pulse Ox O2 O2 Flow FiO2 Time Delivery Rate 03/31/19 97.5 54 18 100/57 96 Room Air 08:00 (71) Intake and Output 03/30/19 03/30/19 03/31/19 1515:00 23:00 07:00 IntakeIntake Total 800 ml BalanceBalance 800 ml Constitutional: alert, oriented Respiratory: clear to auscultation Cardiovascular: regular rate and rhythm Gastrointestinal: soft; No distended Musculoskeletal: nl extremities to inspection Results Results 24hrs Laboratory Tests Test 03/30/19 17:45 03/31/19 04:29 03/31/19 12:50 Prothrombin Time 12.4 Prothrombin Time Ratio 1.0 INR International Normalized Ratio 0.91 Activated Partial Thromboplast Time 28.6 White Blood Count 6.1 Red Blood Count 4.78 Hemoglobin 13.5 L Hematocrit 40.3 L Mean Corpuscular Volume 84.3 Mean Corpuscular Hemoglobin 28.2 L Mean Corpuscular Hemoglobin Concent 33.5 Red Cell Distribution Width 14.2 Platelet Count 273 Mean Platelet Volume 9.8 Immature Granulocytes % 0.300 Neutrophils % 60.3 Lymphocytes % 27.8 Monocytes % 8.2 Eosinophils % 3.1 Basophils % 0.3 Nucleated Red Blood Cells % 0.0 Immature Granulocytes # 0.020 Neutrophils # 3.7 Lymphocytes # 1.7 Monocytes # 0.5 Eosinophils # 0.2 Basophils # 0.0 Nucleated Red Blood Cells # 0.0 Sodium Level 143 Potassium Level 4.4 Chloride Level 103 Carbon Dioxide Level 30 Anion Gap 10 Blood Urea Nitrogen 14 Creatinine 0.87 Est Glomerular Filtrat Rate mL/min > 60 Glucose Level 81 Hemoglobin A1c 5.1 Calcium Level 9.1 Magnesium Level 2.1 Total Bilirubin 1.1 Direct Bilirubin 0.00 # Indirect Bilirubin 1.1 Aspartate Amino Transf (AST/SGOT) 227 H Alanine Aminotransferase (ALT/SGPT) 699 H Alkaline Phosphatase 223 H Total Protein 6.7 # Albumin 4.0 Globulin 2.70 Albumin/Globulin Ratio 1.48 Triglycerides Level 32 Cholesterol Level 142 LDL Cholesterol, Calculated 71 HDL Cholesterol 65 Cholesterol/HDL Ratio 2.1 Thyroid Stimulating Hormone (TSH) 58.600 H HIV (1&2) Antibody NEGATIVE Medications Medication Current Medications Ondansetron HCl (Zofran Inj) 4 mg BRIDGE ORDER PRN IV NAUSEA/VOMITING; Start 03/30/19 at 19:00; Stop 03/31/19 at 18:59 Acetaminophen (Tylenol Tab) 650 mg ER BRIDGE PRN PO .MILD PAIN 1-3 OR TEMP; Start 03/30/19 at 19:00; Stop 03/31/19 at 18:59 Sodium Chloride 1,000 ml @ 80 mls/hr [id number] IV Last administered on 03/31/19at 08:50; Admin Dose 80 MLS/HR; Start 03/30/19 at 18:37 IV Flush (NS 3 ml) 3 ml PER PROTOCOL IV ; Start 03/30/19 at 19:00 Ondansetron HCl (Zofran Inj) 4 mg Q6H PRN IV NAUSEA/VOMITING Last administered on 03/30/19at 21:00; Admin Dose 4 MG; Start 03/30/19 at 19:00 Acetaminophen (Tylenol Tab) 650 mg Q6H PRN PO .PAIN 1-3 OR TEMP; Start 03/30/19 at 19:00 Acetaminophen/ Hydrocodone Bitart ([place] (5/325)) 1 tab Q6H PRN PO .PAIN 4-6; Start 03/30/19 at 19:00 Morphine Sulfate (morphine) 2 mg Q4H PRN IV .PAIN 7-10; Start 03/30/19 at 19:00 Pantoprazole (Protonix Iv) 40 mg DAILY@06 IV Last administered on 03/31/19at 06:28; Admin Dose 40 MG; Start 03/31/19 at 06:00 Metoclopramide HCl (Reglan) 10 mg Q6H PRN IV NAUSEA Last administered on 03/31/19at 01:09; Admin Dose 10 MG; Start 03/31/19 at 01:00; Stop 04/01/19 at 01:00 Levothyroxine Sodium (Synthroid) 25 mcg BEFORE BREAKFAST PO ; Start 03/31/19 at 07:00 ROBERTO BURNS March 31, 2019 17:47
[2019-03-31 20:22] VITALS: BP 95/54; PULSE 52; RESP 20
[2019-04-01 02:22] VITALS: BP 100/60; PULSE 55; RESP 17
[2019-04-01] MEDS: LEVOTHYROXINE 25 MCG TAB PO SCH (05:29)
[2019-04-01] MEDS ORDERED: FAMOTIDINE 20 MG INJ IV SCH (06:00)
[2019-04-01 08:24] VITALS: BP 104/57; PULSE 52; RESP 18
--- NOTE | 2019-04-01 12:30 | PN ---
Date/Time of Note Date/Time of Note DATE: 04/01/19 TIME: 12:26 Assessment/Plan VTE Prophylaxis Risk score (from Ns)>0 risk: 1 SCD applied (from Ns): Yes Pharmacological prophylaxis: heparin Lines/Catheters IV Catheter Type (from Nrs): Saline Lock Urinary Cath still in place: No Assessment/Plan Assessment/Plan Assessment: Transaminitis- Trending down Hyperbilirubinemia- resolved -Rule out choledocholithiasis -Possible stone passage Upper abdominal pain-improved Cholelithiasis Mild fatty infiltration of the liver. Hypothyroidism Plan: MRCP is negative Trend LFTs Outpatient consultation for possible cholecystectomy Repeat LFTs in 1 week with PCP Patient appears adequate for outpatient management Patient seen in collaboration with Subjective: Patient is doing well. Denies abdominal pain, nausea or vomiting. He is tolerating regular diet well. Discussed laboratory findings with the patient. Hepatitis serologies negative. Pending autoimmune panel. Patient appears adequate for outpatient management. Discharge planning in progress for today. Result Diagram: 03/31/19 0429 04/01/19 0458 Results 24hrs Laboratory Tests Test 03/31/19 12:48 03/31/19 12:50 03/31/19 17:34 04/01/19 04:58 Free Thyroxine 0.79 Free Thyroxine Index 1.76 Thyroxine (T4) 5.3 L Free 3.55 Triiodothyronine (T3) pg/mL Triiodothyronine 33.3 (T3) Uptake HIV (1&2) Antibody NEGATIVE Sodium Level 141 142 Potassium Level 3.7 3.7 Chloride Level 105 107 Carbon Dioxide Level 23 26 Anion Gap 13 9 Blood Urea Nitrogen 14 11 Creatinine 0.76 0.66 Est Glomerular > 60 > 60 Filtrat Rate mL/min Glucose Level 100 90 Calcium Level 8.7 8.2 L Total Bilirubin 0.9 0.8 Direct Bilirubin 0.00 0.00 Indirect Bilirubin 0.9 0.8 Aspartate Amino 142 H 101 H Transf (AST/SGOT) Alanine 583 H 489 H Aminotransferase (AL T/SGPT) Alkaline Phosphatase 225 H 207 H Total Protein 7.2 6.9 Albumin 4.0 3.7 Globulin 3.20 3.20 Albumin/Globulin 1.25 1.15 Ratio CC: OMAR SHULTZ MD ; Exam/Review of Systems Exam Vitals Vital Signs Date Temp Pulse Resp B/P (MAP) Pulse Ox O2 O2 Flow FiO2 Time Delivery Rate 04/01/19 98.4 52 18 104/57 95 Room Air 08:24 (73) Intake and Output 03/31/19 03/31/19 04/01/19 1515:00 23:00 07:00 IntakeIntake Total 300 ml 1540 ml 640 ml BalanceBalance 300 ml 1540 ml 640 ml Results Results 24hrs Laboratory Tests Test 03/31/19 12:48 03/31/19 12:50 03/31/19 17:34 04/01/19 04:58 Free Thyroxine 0.79 Free Thyroxine Index 1.76 Thyroxine (T4) 5.3 L Free 3.55 Triiodothyronine (T3) pg/mL Triiodothyronine 33.3 (T3) Uptake HIV (1&2) Antibody NEGATIVE Sodium Level 141 142 Potassium Level 3.7 3.7 Chloride Level 105 107 Carbon Dioxide Level 23 26 Anion Gap 13 9 Blood Urea Nitrogen 14 11 Creatinine 0.76 0.66 Est Glomerular > 60 > 60 Filtrat Rate mL/min Glucose Level 100 90 Calcium Level 8.7 8.2 L Total Bilirubin 0.9 0.8 Direct Bilirubin 0.00 0.00 Indirect Bilirubin 0.9 0.8 Aspartate Amino 142 H 101 H Transf (AST/SGOT) Alanine 583 H 489 H Aminotransferase (AL T/SGPT) Alkaline Phosphatase 225 H 207 H Total Protein 7.2 6.9 Albumin 4.0 3.7 Globulin 3.20 3.20 Albumin/Globulin 1.25 1.15 Ratio Medications Medication Current Medications Sodium Chloride 1,000 ml @ 80 mls/hr [id number] IV Last administered on 03/31/19at 21:49; Admin Dose 80 MLS/HR; Start 03/30/19 at 18:37 IV Flush (NS 3 ml) 3 ml PER PROTOCOL IV ; Start 03/30/19 at 19:00 Ondansetron HCl (Zofran Inj) 4 mg Q6H PRN IV NAUSEA/VOMITING Last administered on 03/30/19at 21:00; Admin Dose 4 MG; Start 03/30/19 at 19:00 Acetaminophen (Tylenol Tab) 650 mg Q6H PRN PO .PAIN 1-3 OR TEMP; Start 03/30/19 at 19:00 Acetaminophen/ Hydrocodone Bitart ([place] (5/325)) 1 tab Q6H PRN PO .PAIN 4-6; Start 03/30/19 at 19:00 Morphine Sulfate (morphine) 2 mg Q4H PRN IV .PAIN 7-10; Start 03/30/19 at 19:00 Levothyroxine Sodium (Synthroid) 25 mcg BEFORE BREAKFAST PO Last administered on 04/01/19at 05:29; Admin Dose 25 MCG; Start 03/31/19 at 07:00 Famotidine (Pepcid Iv) 20 mg 0600 IV Last administered on 04/01/19at 05:29; Admin Dose 20 MG; Start 04/01/19 at 06:00 MIGEL ROMERO NP April 01, 2019 12:30
[2019-04-01] MEDS ORDERED: FAMO20TA18 PO (14:56)
[2019-04-01] MEDS ORDERED: TRAM50TA2 PO (14:56)
--- NOTE | 2019-04-01 15:00 | PDOCDIS ---
Discharge Instructions DIAGNOSIS Discharge Diagnosis 1. Painless jaundice with transaminitis 2. cholelithiasis 3. suspect GERD CONDITION [id number] Patient Condition: [id number] Stable HOME CARE INSTRUCTIONS: [id number] Diet Instructions: [id number] Low Fat /Cholesterol FOLLOW UP/APPOINTMENTS Follow-up Plan 1. Follow up with Dr. Caitlin Badillo in 1-2 weeks if you have worsening abdominal pain Office Address [address] [place] [address] Office 2. Follow up with your primary care provider in 1-2 weeks MARIANA MENDOZA NP April 01, 2019 15:00
--- NOTE | 2019-04-01 15:41 | CONS ---
Assessment/Plan Assessment/Plan Problems: (1) Acquired hypothyroidism Status: Chronic Comment: This gentleman has been on thyroid hormone replacement for some time but at the absolute minimum dose. He comes in with markedly elevated TSH part of which is very likely to be due to the stress of the biliary issue. He has normal free T4 normal free T3. However there is room here to adjust and because that I would increase his levothyroxine from 25 mcg a 50 mcg a day. Please note that the average dose for Americans is roughly 112 mcg a day but it varies from person to person and this must be individualized. He needs to have a thyroid function retested in roughly 6 weeks as an outpatient. CC: ROBERTO BURNS ; Consultation Date/Type/Reason Admit Date/Time March 30, 2019 at 18:37 Date of Consultation: April 01, 2019 Type of Consult Endocrinology Reason for Consultation Hypothyroidism, on levothyroxine 25 mcg a day for roughly 10 months with markedly elevated TSH; Requesting Provider: ROBERTO BURNS Date/Time of Note DATE: 04/01/19 TIME: 15:37 Hx of Present Illness Pleasant 43-year-old gentleman who was admitted to the hospital with biliary disease. He has a history of a thyroid disorder and has been on levothyroxine 25 mcg a day from Dr. Albarran. Patient is unclear when his last set of blood tests were. He presented with some symptoms of hypothyroidism in the past. At the present time he is focused on trying to get the issues with his liver worked out. Constitutional: no complaints Respiratory: no complaints Endocrine: no complaints Past Medical History Medical History: hypothyroid, other (Acute hepatitis possibly of biliary dysfunction) Home Meds Active Scripts Tramadol HCl (Tramadol HCl) 50 Mg Tablet, 50 MG PO Q6H PRN for PAIN, #12 TAB Prov:MARIANA MENDOZA [employer]PLANE [employer]TAIN 04/01/19 Famotidine* (Famotidine*) 20 Mg Tablet, 20 MG PO DAILY, #30 TAB Prov:MARIANA MENDOZA AIRPLANE CAPTAIN 04/01/19 Reported Medications Levothyroxine Sodium* (Levothyroxine Sodium*) 25 Mcg Tablet, 25 MCG PO BEFORE BREAKFAST, #30 TAB 03/30/19 Discontinued Scripts [Magic Mouthwash] No Conflict Check Rx: 1 Part viscous lidocaine 2% 1 Part Maalox (do not substitute Kaopectate) 1 Part diphenhydramine 12.5 mg per 5 ml elixir Quantity: 120 ml Sig: Swish, gargle, and spit one to two teaspoonfuls every six hours as needed. May be swallowed if esophageal involvement. Shake well before using. Prov:ISRAEL GONSALES NP 02/09/17 Acetaminophen* (Tylenol*) 325 Mg Tablet, 1 TAB PO Q6 PRN for PAIN AND OR ELEVATED TEMP, #20 TAB Prov:FAWAD CHARLES DO 06/27/15 Acetaminophen* (Tylenol*) 325 Mg Tablet, 2 TAB PO Q6 PRN for PAIN AND OR ELEVATED TEMP, #30 TAB Prov:ANA HOWE PA-C 06/24/15 Ciprofloxacin Hcl/Dexameth (Ciprodex Otic Suspension) 7.5 Ml Drops.susp, 4 DROP RIGHT EAR BID for 7 Days, EA Prov:ANA HOWE PA-C 06/24/15 Amoxicillin-Clavulanate K* (Augmentin*) 875 Mg Tab, 875 MG PO BID for 7 Days, TAB Prov:ANA HOWE PA-C 06/24/15 Medications Current Medications Sodium Chloride 1,000 ml @ 80 mls/hr [id number] IV Last administered on 03/31/19at 21:49; Admin Dose 80 MLS/HR; Start 03/30/19 at 18:37 IV Flush (NS 3 ml) 3 ml PER PROTOCOL IV ; Start 03/30/19 at 19:00 Ondansetron HCl (Zofran Inj) 4 mg Q6H PRN IV NAUSEA/VOMITING Last administered on 03/30/19at 21:00; Admin Dose 4 MG; Start 03/30/19 at 19:00 Acetaminophen (Tylenol Tab) 650 mg Q6H PRN PO .PAIN 1-3 OR TEMP; Start 03/30/19 at 19:00 Acetaminophen/ Hydrocodone Bitart ([place] (5/325)) 1 tab Q6H PRN PO .PAIN 4-6; Start 03/30/19 at 19:00 Morphine Sulfate (morphine) 2 mg Q4H PRN IV .PAIN 7-10; Start 03/30/19 at 19:00 Levothyroxine Sodium (Synthroid) 25 mcg BEFORE BREAKFAST PO Last administered on 04/01/19at 05:29; Admin Dose 25 MCG; Start 03/31/19 at 07:00 Famotidine (Pepcid Iv) 20 mg 0600 IV Last administered on 04/01/19at 05:29; Admin Dose 20 MG; Start 04/01/19 at 06:00 Allergies: Coded Allergies: No Known Allergy (Unverified , 03/30/19) Family History Significant Family History: no pertinent family hx Social History Alcohol Use: none Smoking Status: Unknown if ever smoked Drug Use: none Exam/Review of Systems Exam Vitals Vital Signs Date Temp Pulse Resp B/P (MAP) Pulse Ox O2 O2 Flow FiO2 Time Delivery Rate 04/01/19 98.4 52 18 104/57 95 Room Air 08:24 (73) Intake and Output 03/31/19 03/31/19 04/01/19 1515:00 23:00 07:00 IntakeIntake Total 300 ml 1540 ml 640 ml BalanceBalance 300 ml 1540 ml 640 ml Constitutional: alert, oriented Eyes: nl conjunctiva, EOMI, nl lids, nl sclera ENMT: nl external ears & nose, nl lips & teeth, mucosa pink and moist Neck: supple, non-tender, other Respiratory: clear to auscultation, normal air movement Cardiovascular: regular rate and rhythm, nl pulses Results Result Diagram: 03/31/19 0429 04/01/19 0458 Results 24hrs Laboratory Tests Test 03/31/19 17:34 04/01/19 04:58 Sodium Level 141 142 Potassium Level 3.7 3.7 Chloride Level 105 107 Carbon Dioxide Level 23 26 Anion Gap 13 9 Blood Urea Nitrogen 14 11 Creatinine 0.76 0.66 Est Glomerular Filtrat Rate mL/min > 60 > 60 Glucose Level 100 90 Calcium Level 8.7 8.2 L Total Bilirubin 0.9 0.8 Direct Bilirubin 0.00 0.00 Indirect Bilirubin 0.9 0.8 Aspartate Amino Transf (AST/SGOT) 142 H 101 H Alanine Aminotransferase (ALT/SGPT) 583 H 489 H Alkaline Phosphatase 225 H 207 H Total Protein 7.2 6.9 Albumin 4.0 3.7 Globulin 3.20 3.20 Albumin/Globulin Ratio 1.25 1.15 Thyroid Stimulating Hormone (TSH) 24.900 H Medications Medication Current Medications Sodium Chloride 1,000 ml @ 80 mls/hr [id number] IV Last administered on 03/31/19at 21:49; Admin Dose 80 MLS/HR; Start 03/30/19 at 18:37 IV Flush (NS 3 ml) 3 ml PER PROTOCOL IV ; Start 03/30/19 at 19:00 Ondansetron HCl (Zofran Inj) 4 mg Q6H PRN IV NAUSEA/VOMITING Last administered on 03/30/19at 21:00; Admin Dose 4 MG; Start 03/30/19 at 19:00 Acetaminophen (Tylenol Tab) 650 mg Q6H PRN PO .PAIN 1-3 OR TEMP; Start 03/30/19 at 19:00 Acetaminophen/ Hydrocodone Bitart ([place] (5/325)) 1 tab Q6H PRN PO .PAIN 4-6; Start 03/30/19 at 19:00 Morphine Sulfate (morphine) 2 mg Q4H PRN IV .PAIN 7-10; Start 03/30/19 at 19:00 Levothyroxine Sodium (Synthroid) 25 mcg BEFORE BREAKFAST PO Last administered on 04/01/19 05:29; Admin Dose 25 MCG; Start 03/31/19 at 07:00 Famotidine (Pepcid Iv) 20 mg 0600 IV Last administered on 04/01/19 05:29; Admin Dose 20 MG; Start 04/01/19 at 06:00 TESHA CASTELLANOS MD April 01, 2019 15:41
[2019-04-01 15:51] VITALS: BP 117/74; PULSE 58; RESP 18
--- NOTE | 2019-04-01 16:51 | DS ---
Date/Time of Note Date/Time of Note DATE: 04/01/19 TIME: 16:49 Discharge Summary Admission/Discharge Info Admit Date/Time March 30, 2019 at 18:37 Discharge Date/Time Discharge Diagnosis 1. Painless jaundice with transaminitis 2. cholelithiasis 3. suspect GERD Patient Condition: Stable Hospital Course ERROR/DUPLICATE Home Meds Active Scripts Levothyroxine Sodium* (Levothyroxine Sodium*) 50 Mcg Tablet, 50 MCG PO DAILY@06, #30 TAB Prov:MARIANA MENDOZA NP 04/01/19 Tramadol HCl (Tramadol HCl) 50 Mg Tablet, 50 MG PO Q6H PRN for PAIN, #12 TAB Prov:MARIANA MENDOZA NP 04/01/19 Famotidine* (Famotidine*) 20 Mg Tablet, 20 MG PO DAILY, #30 TAB Prov:MARIANA MENDOZA NP 04/01/19 Discontinued Scripts [Magic Mouthwash] No Conflict Check Rx: 1 Part viscous lidocaine 2% 1 Part Maalox (do not substitute Kaopectate) 1 Part diphenhydramine 12.5 mg per 5 ml elixir Quantity: 120 ml Sig: Swish, gargle, and spit one to two teaspoonfuls every six hours as needed. May be swallowed if esophageal involvement. Shake well before using. Prov:ISRAEL GONSALES NP 02/09/17 Acetaminophen* (Tylenol*) 325 Mg Tablet, 1 TAB PO Q6 PRN for PAIN AND OR ELEVATED TEMP, #20 TAB Prov:FAWAD CHARLES DO 06/27/15 Acetaminophen* (Tylenol*) 325 Mg Tablet, 2 TAB PO Q6 PRN for PAIN AND OR ELEVATED TEMP, #30 TAB Prov:ANA HOWE PA-C 06/24/15 Ciprofloxacin Hcl/Dexameth (Ciprodex Otic Suspension) 7.5 Ml Drops.susp, 4 DROP RIGHT EAR BID for 7 Days, EA Prov:ANA HOWE PA-C 06/24/15 Amoxicillin-Clavulanate K* (Augmentin*) 875 Mg Tab, 875 MG PO BID for 7 Days, TAB Prov:ANA HOWE PA-C 06/24/15 Follow-up Plan 1. Follow up with Dr. Caitlin Badillo in 1-2 weeks if you have worsening abdominal pain Office Address [id number] [facility] [address] [place] [address] Office 2. Follow up with your primary care provider in 1-2 weeks Follow up with your primary care provider to have your thyroid function retested in 6 weeks Primary Care Provider Care Physician No Primary Time spent on discharge: > 30 minutes Pending Labs Laboratory Tests Test 03/31/19 17:34 04/01/19 04:58 Sodium Level 141 mmol/L (135-144) 142 mmol/L (135-144) Potassium Level 3.7 mmol/L (3.5-5.1) 3.7 mmol/L (3.5-5.1) Chloride Level 105 mmol/L (97-110) 107 mmol/L (97-110) Carbon Dioxide Level 23 mmol/L (21-31) 26 mmol/L (21-31) Anion Gap 13 (5-13) 9 (5-13) Blood Urea Nitrogen 14 mg/dl (7-20) 11 mg/dl (7-20) Creatinine 0.76 mg/dl (0.61-1.24) 0.66 mg/dl (0.61-1.24) Est Glomerular Filtrat > 60 mL/min (>60) > 60 mL/min (>60) Rate mL/min Glucose Level 100 mg/dl (70-220) 90 mg/dl (70-220) Calcium Level 8.7 mg/dl (8.4-10.2) 8.2 mg/dl (8.4-10.2) Total Bilirubin 0.9 mg/dl (0.2-1.3) 0.8 mg/dl (0.2-1.3) Direct Bilirubin 0.00 mg/dl (0.00-0.20) 0.00 mg/dl (0.00-0.20) Indirect Bilirubin 0.9 mg/dl (0-1.1) 0.8 mg/dl (0-1.1) Aspartate Amino 142 IU/L (15-46) 101 IU/L (15-46) Transf (AST/SGOT) Alanine 583 IU/L (13-69) 489 IU/L (13-69) Aminotransferase (ALT/SGPT) Alkaline Phosphatase 225 IU/L (42-121) 207 IU/L (42-121) Total Protein 7.2 g/dl (6.1-8.1) 6.9 g/dl (6.1-8.1) Albumin 4.0 g/dl (3.3-4.9) 3.7 g/dl (3.3-4.9) Globulin 3.20 g/dl (1.3-3.2) 3.20 g/dl (1.3-3.2) Albumin/Globulin Ratio 1.25 1.15 Thyroid Stimulating 24.900 MIU/L (0.465-4.680) Hormone (TSH) MARIANA MENDOZA NP April 01, 2019 16:51
[2019-04-01] MEDS ORDERED: LEVO50TA7 PO (16:52)
--- NOTE | 2019-04-01 16:55 | DS ---
Date/Time of Note Date/Time of Note DATE: 04/01/19 TIME: 16:54 Discharge Summary Admission/Discharge Info Admit Date/Time March 30, 2019 at 18:37 Discharge Date/Time Discharge Diagnosis 1. Painless jaundice with transaminitis 2. cholelithiasis 3. suspect GERD Patient Condition: Stable Consults 1. Dr. Caitlin Badillo 2. Dr. [facility] Course This is a 43-year-old male with history of hernia repair and appendectomy who came to [facility] due to reports of right upper quadrant abdominal pain for 1 month duration. He also reported having jaundice. Patient did have imaging done of his abdomen with CT scan that did show cholelithiasis with no acute abnormality identified within the abdomen and pelvis. We did get an MRI of the abdomen as well that showed normal MRCP with no intrahepatic or extrahepatic biliary ductal dilation. Hepatitis viral panel was also negative. GI consult did follow the patient and recommended no ERCP. LFTs did trend down. Likely elevation of LFT was from possibly passing gallstone. Patient was advanced on his diet and he did tolerate well. He was otherwise optimized medically. He did have history of hypothyroidism and central office repairer did follow him and we did adjust his medication accordingly. During his stay he did improve. He was advised outpatient follow-up with vocational counselor as well as with his primary care doctor. The plan of care was discussed with the patient and patient verbalizes understanding. On the day discharge patient was in stable condition Discussed plan of care with Dr. [facility] Med Active Scripts Levothyroxine Sodium* (Levothyroxine Sodium*) 50 Mcg Tablet, 50 MCG PO DAILY@06, #30 TAB Prov:MARIANA MENDOZA PHYSICIST [employer]OGENICS 04/01/19 Tramadol HCl (Tramadol HCl) 50 Mg Tablet, 50 MG PO Q6H PRN for PAIN, #12 TAB Prov:MARIANA MENDOZA NP 04/01/19 Famotidine* (Famotidine*) 20 Mg Tablet, 20 MG PO DAILY, #30 TAB Prov:MARIANA MENDOZA PHYSICIST [employer]YOGENICS 04/01/19 Discontinued Scripts [Magic Mouthwash] No Conflict Check Rx: 1 Part viscous lidocaine 2% 1 Part Maalox (do not substitute Kaopectate) 1 Part diphenhydramine 12.5 mg per 5 ml elixir Quantity: 120 ml Sig: Swish, gargle, and spit one to two teaspoonfuls every six hours as needed. May be swallowed if esophageal involvement. Shake well before using. Prov:ISRAEL GONSALES NP 02/09/17 Acetaminophen* (Tylenol*) 325 Mg Tablet, 1 TAB PO Q6 PRN for PAIN AND OR ELEVATED TEMP, #20 TAB Prov:FAWAD CHARLES DO 06/27/15 Acetaminophen* (Tylenol*) 325 Mg Tablet, 2 TAB PO Q6 PRN for PAIN AND OR ELEVATED TEMP, #30 TAB Prov:ANA HOWE PA-C 06/24/15 Ciprofloxacin Hcl/Dexameth (Ciprodex Otic Suspension) 7.5 Ml Drops.susp, 4 DROP RIGHT EAR BID for 7 Days, EA Prov:ANA HOWE PA-C 06/24/15 Amoxicillin-Clavulanate K* (Augmentin*) 875 Mg Tab, 875 MG PO BID for 7 Days, TAB Prov:ANA HOWE PA-C 06/24/15 Follow-up Plan 1. Follow up with Dr. Caitlin Badillo in 1-2 weeks if you have worsening abdominal pain Office Address [address] [place] [id number] Office 2. Follow up with your primary care provider in 1-2 weeks Follow up with your primary care provider to have your thyroid function retested in 6 weeks Primary Care Provider Care Physician No Primary Time spent on discharge: > 30 minutes Pending Labs Laboratory Tests Test 03/31/19 17:34 04/01/19 04:58 Sodium Level 141 mmol/L (135-144) 142 mmol/L (135-144) Potassium Level 3.7 mmol/L (3.5-5.1) 3.7 mmol/L (3.5-5.1) Chloride Level 105 mmol/L (97-110) 107 mmol/L (97-110) Carbon Dioxide Level 23 mmol/L (21-31) 26 mmol/L (21-31) Anion Gap 13 (5-13) 9 (5-13) Blood Urea Nitrogen 14 mg/dl (7-20) 11 mg/dl (7-20) Creatinine 0.76 mg/dl (0.61-1.24) 0.66 mg/dl (0.61-1.24) Est Glomerular Filtrat > 60 mL/min (>60) > 60 mL/min (>60) Rate mL/min Glucose Level 100 mg/dl (70-220) 90 mg/dl (70-220) Calcium Level 8.7 mg/dl (8.4-10.2) 8.2 mg/dl (8.4-10.2) Total Bilirubin 0.9 mg/dl (0.2-1.3) 0.8 mg/dl (0.2-1.3) Direct Bilirubin 0.00 mg/dl (0.00-0.20) 0.00 mg/dl (0.00-0.20) Indirect Bilirubin 0.9 mg/dl (0-1.1) 0.8 mg/dl (0-1.1) Aspartate Amino 142 IU/L (15-46) 101 IU/L (15-46) Transf (AST/SGOT) Alanine 583 IU/L (13-69) 489 IU/L (13-69) Aminotransferase (ALT/SGPT) Alkaline Phosphatase 225 IU/L (42-121) 207 IU/L (42-121) Total Protein 7.2 g/dl (6.1-8.1) 6.9 g/dl (6.1-8.1) Albumin 4.0 g/dl (3.3-4.9) 3.7 g/dl (3.3-4.9) Globulin 3.20 g/dl (1.3-3.2) 3.20 g/dl (1.3-3.2) Albumin/Globulin Ratio 1.25 1.15 Thyroid Stimulating 24.900 MIU/L (0.465-4.680) Hormone (TSH) MARIANA MENDOZA NP April 01, 2019 16:55
[2019-04-02] MEDS ORDERED: LEVOTHYROXINE 50 MCG TAB PO SCH (06:00)
== END 2019-04-01 18:00 | disposition home or self-care (01) | DRG 445 ==
LOC: FTE 13:12 → MS1 18:37 → CANRESERV 23:20
PROVIDERS: ADMIT Internal Medicine; ATTEND Internal Medicine
DX: K80.21 Calculus of gallbladder without cholecystitis with obstruction (principal); R17 Unspecified jaundice; K76.0 Fatty (change of) liver, not elsewhere classified; E03.9 Hypothyroidism, unspecified; K21.9 Gastro-esophageal reflux disease without esophagitis
CPT/HCPCS: 36415; 74178; 74181; 76705; 80053; 80061; 81003; 83036; 83690; 83735; 84436; 84439; 84443; 84479; 84481; 85025; 85610; 85730; 86038; 86255; 86703; 86704; 86709; 86803; 87340; C9113; J2405; J2765; J7030; Q9967